=== PATIENT | male | born 1975 | race Caucasian/White ===

== ENCOUNTER → 2023-02-08 | Outpatient (REF) | payer BC, MEDICAID ==
[2023-02-08 17:53] LABS: APPEARANCE, URINE HAZY (CLEAR); BACTERIA, URINE AUTO NEGATIVE (NEGATIVE); BILIRUBIN, URINE AUTO NEGATIVE (NEGATIVE); BLOOD, URINE BLOOD 1+ (NEGATIVE); COLOR, URINE YELLOW (YELLOW); GLUCOSE, URINE (UA) AUTO NEGATIVE (NEGATIVE); KETONE, URINE AUTO NEGATIVE (NEGATIVE); LEUKOCYTE ESTERASE, URINE AUTO 1+ (NEGATIVE); MUCUS, URINE SMALL (NEGATIVE); NITRITE, URINE AUTO NEGATIVE (NEGATIVE); PROTEIN, URINE AUTO NEGATIVE (NEGATIVE); RBC, URINE AUTO 3 /HPF (0-3); SPECIFIC GRAVITY URINE AUTO 1.016 (1.002-1.035); SQUAMOUS EPITHELIAL CELL UR AU 1 /HPF (0-6); UROBILINOGEN, URINE AUTO 0.2 mg/dL (0.0-2.0); WBC, URINE AUTO 37 /HPF (0-3)
== END ==
LOC: M SMT 17:11
PROVIDERS: ATTEND Urology
DX: N28.89 Other specified disorders of kidney and ureter (principal)

== ENCOUNTER 2023-04-26 20:24 | Inpatient (IN) | payer BC ==
[~2023-04-26] VITALS: Ht 180.3 cm; Wt 134.3 kg
[2023-04-26 22:10] VITALS: BP 139/79; TEMP 97.7; O2SAT 95
[2023-04-26] MEDS ORDERED: GLUCAGON INJ 1MG VIAL SC PRN (22:35)
[2023-04-26] MEDS ORDERED: DEXTROSE 50% 50ML SYRINGE IV PRN (22:35)
[2023-04-26] MEDS ORDERED: GLUCOSE 4GM CHEW TABLET PO PRN (22:35)
[2023-04-26] MEDS ORDERED: HYDROMORPHONE HCL 0.5 MG/ 0.5 ML SYRINGE IV PRN (22:35)
[2023-04-26] MEDS ORDERED: ONDANSETRON 4MG 2ML VIAL IV PRN (22:35)
[2023-04-26 23:37] LABS: ALBUMIN 1.4 G/DL (3.2-5.2); ALKALINE PHOSPHATASE 121 U/L (46-116); ALT/SGPT 11 U/L (7.0-40); AST/SGOT 24 U/L (<34); BILIRUBIN,TOTAL 1.2 MG/DL (0.3-1.2); BLOOD UREA NITROGEN 16 MG/DL (9-23); CALCIUM LEVEL 7.4 MG/DL (8.5-10.1); CARBON DIOXIDE LEVEL 27 MMOL/L (20-31); CHLORIDE LEVEL 100 MMOL/L (98-107); CREATININE FOR GFR 0.64 MG/DL (0.70-1.30); GLOMERULAR FILTRATION RATE > 60.0 (>60); GLUCOSE, FASTING 121 MG/DL (60-100); POTASSIUM SERUM 3.9 MMOL/L (3.5-5.1); SODIUM LEVEL 134 MMOL/L (136-145); TOTAL PROTEIN 5.8 G/DL (5.7-8.2)
[2023-04-27] VITALS: TEMP 98.2
[2023-04-27] MEDS ORDERED: METF10004 PO (00:26)
[2023-04-27] MEDS ORDERED: CYCL-707 PO (00:26)
[2023-04-27] MEDS ORDERED: TRAM50TA2 PO (00:26)
[2023-04-27] MEDS ORDERED: GABA-1171 PO (00:26)
[2023-04-27] MEDS ORDERED: HOME MED LIST COMPLETE! XX SCH (00:30)
[2023-04-27] MEDS: LR 1,000 ML IV SCH ×2 (00:51→11:40)
[2023-04-27] MEDS ORDERED: VANCOMYCIN HCL 1,000 MG, VIAL MATE ADAPTER 1 EACH in D5W 250 ML IV ONE ×2 (01:00→02:00)
[2023-04-27 03:00] VITALS: TEMP 97.7
[2023-04-27 05:40] VITALS: BP 134/71; TEMP 97.5; O2SAT 97
[2023-04-27] MEDS: INSULIN LISPRO (NovoLOG) PER UNIT SC SCH ×5 (06:00→20:36)
[2023-04-27 08:45] LABS: BLOOD UREA NITROGEN 15 MG/DL (9-23); CALCIUM LEVEL 7.7 MG/DL (8.5-10.1); CARBON DIOXIDE LEVEL 26 MMOL/L (20-31); CHLORIDE LEVEL 100 MMOL/L (98-107); CREATININE FOR GFR 0.59 MG/DL (0.70-1.30); GLOMERULAR FILTRATION RATE > 60.0 (>60); GLUCOSE, FASTING 122 MG/DL (60-100); SODIUM LEVEL 135 MMOL/L (136-145)
[2023-04-27] MEDS ORDERED: VANCOMYCIN HCL 1,000 MG, VIAL MATE ADAPTER 1 EACH in NS 250 ML IV SCH ×2 (10:00→18:00)
[2023-04-27] MEDS ORDERED: metroNIDAZOLE 500 MG in IV 1 EA IV SCH (10:40)
[2023-04-27 11:19] LABS: BASO % 0.5 % (0.0-1.0); EOS # 0.1 10^3/uL (0.0-0.5); EOS % 1.2 % (0.0-3.0); HEMATOCRIT 30.5 % (42.0-52.0); HEMOGLOBIN 9.3 g/dl (13.5-17.5); LYMPH # 1.9 10^3/uL (1.5-5.0); LYMPH % 22.9 % (24.0-44.0); MEAN CORPUSCULAR HEMOGLOBIN 23.5 pg (27.0-33.0); MEAN CORPUSCULAR HGB CONC 30.5 g/dl (32.0-36.5); MEAN CORPUSCULAR VOLUME 77.2 fl (80.0-96.0); MONO % 11.9 % (2.0-8.0); NEUTROPHILS # 5.1 10^3/uL (1.5-8.5); NEUTROPHILS % 62.3 % (36.0-66.0); PLATELET COUNT, AUTOMATED 245 10^3/uL (150-450); RED BLOOD COUNT 3.95 10^6/uL (4.30-6.10); WHITE BLOOD COUNT 8.2 10^3/uL (4.0-10.0)
[2023-04-27 13:44] VITALS: BP 130/70; TEMP 97.9; O2SAT 92
[2023-04-27] MEDS ORDERED: GLUCAGON INJ 1MG VIAL SC PRN (19:25)
[2023-04-27 20:00] VITALS: BP 114/61; TEMP 97; O2SAT 95
[2023-04-27] MEDS: PERCOCET 5MG/325MG TAB PO PRN (20:07)
[2023-04-27] MEDS: HEPARIN SOD (PORCINE) 5000UNITS/ML 1ML VIAL/SYRINGE SC SCH (20:57)
[2023-04-27] MEDS: TRIAMCINOLONE ACETONIDE 0.025% 80GM CREAM TOP SCH (20:57)
[2023-04-28] MEDS: PIPERACILLIN/TAZOBACTAM SOD 3.375 GM in D5W MINI-BAG PLUS 50 ML IV SCH ×2 (02:49→08:20)
[2023-04-28] MEDS ORDERED: diphenhydrAMINE 25MG CAP PO ONE (03:00)
[2023-04-28] MEDS: HEPARIN SOD (PORCINE) 5000UNITS/ML 1ML VIAL/SYRINGE SC SCH ×3 (05:38→21:53)
[2023-04-28 06:00] VITALS: BP 116/73; TEMP 97.2; O2SAT 96
[2023-04-28 07:48] LABS: BASO % 0.5 % (0.0-1.0); EOS # 0.1 10^3/uL (0.0-0.5); EOS % 2.3 % (0.0-3.0); HEMOGLOBIN 8.9 g/dl (13.5-17.5); LYMPH # 1.9 10^3/uL (1.5-5.0); LYMPH % 30.4 % (24.0-44.0); MEAN CORPUSCULAR HEMOGLOBIN 23.8 pg (27.0-33.0); MEAN CORPUSCULAR HGB CONC 30.7 g/dl (32.0-36.5); MEAN CORPUSCULAR VOLUME 77.5 fl (80.0-96.0); MONO # 0.8 10^3/uL (0.0-0.8); MONO % 12.3 % (2.0-8.0); NEUTROPHILS # 3.3 10^3/uL (1.5-8.5); NEUTROPHILS % 53.7 % (36.0-66.0); PLATELET COUNT, AUTOMATED 215 10^3/uL (150-450); RED BLOOD COUNT 3.74 10^6/uL (4.30-6.10); WHITE BLOOD COUNT 6.1 10^3/uL (4.0-10.0)
[2023-04-28] MEDS: INSULIN LISPRO (NovoLOG) PER UNIT SC SCH ×4 (08:20→20:42)
[2023-04-28] MEDS: TRIAMCINOLONE ACETONIDE 0.025% 80GM CREAM TOP SCH ×2 (08:21→20:47)
[2023-04-28 08:24] LABS: ALBUMIN 1.5 G/DL (3.2-5.2); ALKALINE PHOSPHATASE 122 U/L (46-116); ALT/SGPT 15 U/L (7.0-40); AST/SGOT 40 U/L (<34); BILIRUBIN,TOTAL 0.6 MG/DL (0.3-1.2); BLOOD UREA NITROGEN 14 MG/DL (9-23); CALCIUM LEVEL 7.5 MG/DL (8.5-10.1); CARBON DIOXIDE LEVEL 28 MMOL/L (20-31); CHLORIDE LEVEL 104 MMOL/L (98-107); CREATININE FOR GFR 0.63 MG/DL (0.70-1.30); GLOMERULAR FILTRATION RATE > 60.0 (>60); GLUCOSE, FASTING 110 MG/DL (60-100); POTASSIUM SERUM 4.1 MMOL/L (3.5-5.1); SODIUM LEVEL 139 MMOL/L (136-145); TOTAL PROTEIN 5.9 G/DL (5.7-8.2)
[2023-04-28] MEDS: PERCOCET 5MG/325MG TAB PO PRN ×3 (08:29→22:54)
[2023-04-28 09:23] LABS: ERYTHROCYTE SEDIMENTATION RATE > 130 mm/hr (0-15)
[2023-04-28] MEDS ORDERED: ISOVUE-370 76% 100ML VIAL As Ordered ONE (09:34)
[2023-04-28] MEDS ORDERED: SIMETHICONE 80MG CHEW TAB PO PRN (13:40)
[2023-04-28 14:00] VITALS: BP 115/68; TEMP 97; O2SAT 96
[2023-04-28 20:43] VITALS: BP 114/63; TEMP 97.3; O2SAT 97
[2023-04-28] MEDS: BACTRIM 160MG/800MG DS TAB PO SCH (20:47)
[2023-04-28] MEDS: GABAPENTIN 100 MG CAP PO SCH (20:47)
[2023-04-29 05:18] VITALS: BP 112/66; TEMP 97; O2SAT 97
[2023-04-29] MEDS: HEPARIN SOD (PORCINE) 5000UNITS/ML 1ML VIAL/SYRINGE SC SCH ×3 (05:43→21:20)
[2023-04-29 06:16] LABS: BASO % 0.6 % (0.0-1.0); EOS # 0.2 10^3/uL (0.0-0.5); EOS % 2.6 % (0.0-3.0); HEMATOCRIT 33.4 % (42.0-52.0); HEMOGLOBIN 10.2 g/dl (13.5-17.5); LYMPH # 2.4 10^3/uL (1.5-5.0); LYMPH % 38.5 % (24.0-44.0); MEAN CORPUSCULAR HGB CONC 30.5 g/dl (32.0-36.5); MEAN CORPUSCULAR VOLUME 78.6 fl (80.0-96.0); MONO # 0.6 10^3/uL (0.0-0.8); MONO % 9.2 % (2.0-8.0); NEUTROPHILS % 48.3 % (36.0-66.0); PLATELET COUNT, AUTOMATED 286 10^3/uL (150-450); RED BLOOD COUNT 4.25 10^6/uL (4.30-6.10); WHITE BLOOD COUNT 6.2 10^3/uL (4.0-10.0)
[2023-04-29 06:39] LABS: BLOOD UREA NITROGEN 13 MG/DL (9-23); CARBON DIOXIDE LEVEL 26 MMOL/L (20-31); CHLORIDE LEVEL 102 MMOL/L (98-107); GLOMERULAR FILTRATION RATE > 60.0 (>60); GLUCOSE, FASTING 121 MG/DL (60-100); MAGNESIUM LEVEL 2.3 MG/DL (1.8-2.4); POTASSIUM SERUM 4.3 MMOL/L (3.5-5.1); SODIUM LEVEL 137 MMOL/L (136-145)
[2023-04-29] MEDS: INSULIN LISPRO (NovoLOG) PER UNIT SC SCH ×4 (07:30→21:00)
[2023-04-29] MEDS: GABAPENTIN 100 MG CAP PO SCH ×3 (08:10→21:20)
[2023-04-29] MEDS: BACTRIM 160MG/800MG DS TAB PO SCH ×2 (08:10→21:20)
[2023-04-29] MEDS: TRIAMCINOLONE ACETONIDE 0.025% 80GM CREAM TOP SCH ×2 (08:11→21:20)
[2023-04-29 14:00] VITALS: BP 132/73; TEMP 97.5; O2SAT 95
[2023-04-29] MEDS: MIRALAX *UNIT DOSE* 17GM PACKET PO SCH (15:13)
[2023-04-29 20:45] VITALS: BP 113/65; TEMP 97.9; O2SAT 96
[2023-04-30] MEDS: HEPARIN SOD (PORCINE) 5000UNITS/ML 1ML VIAL/SYRINGE SC SCH ×3 (05:19→21:26)
[2023-04-30 06:00] VITALS: BP 114/64; TEMP 98.1; O2SAT 94
[2023-04-30 06:30] LABS: BASO % 0.5 % (0.0-1.0); EOS # 0.1 10^3/uL (0.0-0.5); EOS % 2.1 % (0.0-3.0); HEMATOCRIT 32.9 % (42.0-52.0); HEMOGLOBIN 9.8 g/dl (13.5-17.5); LYMPH % 25.4 % (24.0-44.0); MEAN CORPUSCULAR HEMOGLOBIN 23.7 pg (27.0-33.0); MEAN CORPUSCULAR HGB CONC 29.8 g/dl (32.0-36.5); MEAN CORPUSCULAR VOLUME 79.5 fl (80.0-96.0); MONO # 0.4 10^3/uL (0.0-0.8); MONO % 10.2 % (2.0-8.0); NEUTROPHILS # 2.3 10^3/uL (1.5-8.5); PLATELET COUNT, AUTOMATED 222 10^3/uL (150-450); RED BLOOD COUNT 4.14 10^6/uL (4.30-6.10); WHITE BLOOD COUNT 3.8 10^3/uL (4.0-10.0)
[2023-04-30 06:51] LABS: BLOOD UREA NITROGEN 11 MG/DL (9-23); CALCIUM LEVEL 8.1 MG/DL (8.5-10.1); CARBON DIOXIDE LEVEL 28 MMOL/L (20-31); CHLORIDE LEVEL 101 MMOL/L (98-107); CREATININE FOR GFR 0.84 MG/DL (0.70-1.30); GLOMERULAR FILTRATION RATE > 60.0 (>60); GLUCOSE, FASTING 91 MG/DL (60-100); MAGNESIUM LEVEL 2.3 MG/DL (1.8-2.4); POTASSIUM SERUM 4.5 MMOL/L (3.5-5.1); SODIUM LEVEL 137 MMOL/L (136-145)
[2023-04-30] MEDS: INSULIN LISPRO (NovoLOG) PER UNIT SC SCH ×4 (07:30→21:00)
[2023-04-30] MEDS: BACTRIM 160MG/800MG DS TAB PO SCH ×2 (08:11→21:27)
[2023-04-30] MEDS: GABAPENTIN 100 MG CAP PO SCH ×3 (08:11→21:26)
[2023-04-30] MEDS: MIRALAX *UNIT DOSE* 17GM PACKET PO SCH (08:12)
[2023-04-30] MEDS: TRIAMCINOLONE ACETONIDE 0.025% 80GM CREAM TOP SCH ×2 (08:12→21:27)
[2023-04-30] MEDS: SENOKOT S TAB PO SCH ×2 (12:44→21:26)
[2023-04-30 14:00] VITALS: BP 114/64; TEMP 97.9; O2SAT 96
[2023-04-30 17:43] LABS: BASO % 0.5 % (0.0-1.0); EOS # 0.1 10^3/uL (0.0-0.5); EOS % 2.4 % (0.0-3.0); HEMOGLOBIN 9.9 g/dl (13.5-17.5); LYMPH # 0.9 10^3/uL (1.5-5.0); LYMPH % 22.4 % (24.0-44.0); MEAN CORPUSCULAR HEMOGLOBIN 23.6 pg (27.0-33.0); MEAN CORPUSCULAR VOLUME 78.8 fl (80.0-96.0); MONO # 0.5 10^3/uL (0.0-0.8); MONO % 10.8 % (2.0-8.0); NEUTROPHILS # 2.6 10^3/uL (1.5-8.5); NEUTROPHILS % 62.9 % (36.0-66.0); PLATELET COUNT, AUTOMATED 202 10^3/uL (150-450); RED BLOOD COUNT 4.19 10^6/uL (4.30-6.10); WHITE BLOOD COUNT 4.2 10^3/uL (4.0-10.0)
[2023-04-30 21:23] VITALS: BP 117/65; TEMP 98.1; O2SAT 93
[2023-04-30] MEDS ORDERED: NYSTATIN 500,000U/5ML SUSP UDC PO ONE (21:55)
[2023-05-01 04:50] VITALS: BP 114/64; TEMP 97.7; O2SAT 92
[2023-05-01] MEDS: HEPARIN SOD (PORCINE) 5000UNITS/ML 1ML VIAL/SYRINGE SC SCH ×2 (05:44→14:00)
[2023-05-01 06:16] LABS: BLOOD UREA NITROGEN 11 MG/DL (9-23); CALCIUM LEVEL 7.7 MG/DL (8.5-10.1); CARBON DIOXIDE LEVEL 28 MMOL/L (20-31); CHLORIDE LEVEL 104 MMOL/L (98-107); CREATININE FOR GFR 0.93 MG/DL (0.70-1.30); GLOMERULAR FILTRATION RATE > 60.0 (>60); GLUCOSE, FASTING 121 MG/DL (60-100); MAGNESIUM LEVEL 2.1 MG/DL (1.8-2.4); POTASSIUM SERUM 4.5 MMOL/L (3.5-5.1); SODIUM LEVEL 138 MMOL/L (136-145)
[2023-05-01] MEDS ORDERED: ISOVUE-370 76% 100ML VIAL As Ordered ONE (07:45)
[2023-05-01] MEDS: MICONAZOLE TOPICAL 2% CREAM 15GM TOP SCH ×2 (09:00→16:14)
[2023-05-01] MEDS: GABAPENTIN 100 MG CAP PO SCH ×2 (09:46→16:13)
[2023-05-01] MEDS: BACTRIM 160MG/800MG DS TAB PO SCH (09:46)
[2023-05-01] MEDS: INSULIN LISPRO (NovoLOG) PER UNIT SC SCH ×2 (09:46→12:00)
[2023-05-01] MEDS: SENOKOT S TAB PO SCH (09:46)
[2023-05-01] MEDS: TRIAMCINOLONE ACETONIDE 0.025% 80GM CREAM TOP SCH (09:47)
[2023-05-01] MEDS ORDERED: BACTDSTA PO (13:07)
[2023-05-01] MEDS ORDERED: CYMB1CAP5 PO (17:08)
[2023-05-01] MEDS ORDERED: NYST-38 SS (17:10)
== END 2023-05-01 17:29 | disposition home or self-care (01) | DRG 0 ==
LOC: M MSPAV 22:31
PROVIDERS: ADMIT Internal Medicine; ATTEND Student in an Organized Health Care Education/Training Program
DX: A41.9 Sepsis, unspecified organism (principal); E66.01 Morbid (severe) obesity due to excess calories; E11.9 Type 2 diabetes mellitus without complications; K68.19 Other retroperitoneal abscess; D63.8 Anemia in other chronic diseases classified elsewhere; E87.1 Hypo-osmolality and hyponatremia; Z91.040 Latex allergy status; Z79.899 Other long term (current) drug therapy; Q05.9 Spina bifida, unspecified; R21 Rash and other nonspecific skin eruption

== ENCOUNTER → 2023-04-26 | Outpatient (CLI) | payer BC, MEDICAID ==
[~2023-04-26] MED LIST: CYCL-707 PO; GABA-1171 PO; LIDOCAINE 1% MDV 20ML VIAL As Ordered ONE; METF10004 PO; TRAM50TA2 PO
[2023-04-26 11:55] VITALS: TEMP 97.3
[2023-04-26 12:51] LABS: HEMATOCRIT 32.1 % (42.0-52.0); HEMOGLOBIN 9.9 g/dl (13.5-17.5); MEAN CORPUSCULAR HEMOGLOBIN 23.7 pg (27.0-33.0); MEAN CORPUSCULAR HGB CONC 30.8 g/dl (32.0-36.5); PLATELET COUNT, AUTOMATED 241 10^3/uL (150-450); RED BLOOD COUNT 4.17 10^6/uL (4.30-6.10); WHITE BLOOD COUNT 18.2 10^3/uL (4.0-10.0)
[2023-04-26 13:03] LABS: INR 1.21
[2023-04-26 13:40] VITALS: BP 139/67; O2SAT 92
[2023-04-26 14:27] LABS: BLOOD UREA NITROGEN 14 MG/DL (9-23); CALCIUM LEVEL 7.8 MG/DL (8.5-10.1); CARBON DIOXIDE LEVEL 29 MMOL/L (20-31); CHLORIDE LEVEL 95 MMOL/L (98-107); CREATININE FOR GFR 0.56 MG/DL (0.70-1.30); GLOMERULAR FILTRATION RATE > 60.0 (>60); GLUCOSE, FASTING 147 MG/DL (60-100); POTASSIUM SERUM 4.3 MMOL/L (3.5-5.1); SODIUM LEVEL 130 MMOL/L (136-145)
== END ==
LOC: M IRPRO 11:21
PROVIDERS: ATTEND Urology
DX: N15.1 Renal and perinephric abscess (principal)

== ENCOUNTER → 2023-05-30 | Outpatient (REF) | payer MEDICARE ==
[~2023-05-30] MED LIST changes: +BACTDSTA PO; +CYMB1CAP5 PO; -LIDOCAINE 1% MDV 20ML VIAL As Ordered ONE; +NYST-38 SS
== END ==
LOC: M SMT 17:11
PROVIDERS: ATTEND Urology
DX: K68.19 Other retroperitoneal abscess (principal)